=== PATIENT | female | born 1955 | race Caucasian/White ===

== ENCOUNTER 2020-08-29 08:12 | Outpatient (REF) | payer OTHER, SELFPAY ==
[2020-08-29 19:16] LABS: Abs Immature Grans 0.01 10^3/uL (0.0-0.06); Absolute Basophil Count 0.06 10^3/uL (0.0-0.2); Absolute Eosinophil Count 0.17 10^3/uL (0.0-0.7); Absolute Lymphocyte Count 1.93 10^3/uL (1.2-3.4); Absolute Neutrophil Count 2.53 10^3/uL (1.2-6.7); Basophils % 1.2; Eosinophils % 3.3; HCT 40.6 % (36.0-46.0); HGB 13.3 g/dL (11.2-15.7); Immature Grans % 0.2; Lymphocytes % 37.8; MCH 32.3 pg (27.0-33.0); MCHC 32.8 % (32.0-36.0); MCV 98.5 fL (80-95); MPV 9.4 fL (8.0-11.0); Monocytes % 7.8; Neutrophils % 49.7; Nucleated RBC 0 %; Platelet Count 287 10^3/uL (130-400); RBC 4.12 10^6/uL (3.93-5.22); RDW 12.8 % (11.7-14.6); RDW-SD 46.2 fL
[2020-08-29 19:58] LABS: ALT 15 U/L (14-59); AST 12 U/L (15-37); Albumin 3.6 g/dL (3.4-5.0); Alkaline Phosphatase 77 U/L (46-116); Anion Gap 7.2 mmol/L (3-11); BUN 12 mg/dL (7-18); Bilirubin, Total 0.4 mg/dL (0.2-1.0); CO2 31.8 mmol/L (21.0-32.0); Calcium 8.5 mg/dL (8.5-10.1); Calculated LDL 161 mg/dL (<100); Chloride 104 mmol/L (98-107); Cholesterol 217 mg/dL (<200); Estimated GFR 55.64 (mL/min/1.73m2); Glucose 91 mg/dL (74-106); HDL Cholesterol 39 mg/dL (40-60); Potassium 3.6 mmol/L (3.5-5.1); Sodium 143 mmol/L (136-145); TSH (W/Ref FT4) 5.11 uIU/mL (0.36-3.74); Total Protein 6.4 g/dL (6.4-8.2); Triglyceride 88 mg/dL (<150)
[2020-08-29 20:20] LABS: FREE T4 1.13 ng/dL (0.76-1.46)
== END 2020-08-29 08:32 ==
LOC: NCHCN 08:12
PROVIDERS: PCP Physician Assistant; Visit Provider Physician Assistant
DX: E78.5 Hyperlipidemia, unspecified (principal); E03.9 Hypothyroidism, unspecified; K76.0 Fatty (change of) liver, not elsewhere classified; J44.9 Chronic obstructive pulmonary disease, unspecified
CPT/HCPCS: 80053; 80061; 84439; 84443; 85025

== ENCOUNTER 2020-11-28 15:41 | Outpatient (REF) | payer OTHER, SELFPAY ==
[2020-11-28 16:12] LABS: Calculated LDL 109 mg/dL (<100); Cholesterol 176 mg/dL (<200); HDL Cholesterol 33 mg/dL (40-60); TSH (W/Ref FT4) 3.51 uIU/mL (0.36-3.74); Triglyceride 173 mg/dL (<150)
== END 2020-11-28 15:42 | disposition home or self-care (01) ==
LOC: NCHCN 15:41
PROVIDERS: PCP Physician Assistant; Visit Provider Physician Assistant
DX: E78.2 Mixed hyperlipidemia (principal); E03.9 Hypothyroidism, unspecified; F32.9 Major depressive disorder, single episode, unspecified; F17.200 Nicotine dependence, unspecified, uncomplicated
CPT/HCPCS: 80061; 84443

== ENCOUNTER 2020-12-05 15:20 | Outpatient (REF) | payer OTHER, SELFPAY ==
[2020-12-07 13:17] LABS: COVID-19 RT-PCR UVMMC Result Negative (Negative)
== END 2020-12-05 15:21 | disposition home or self-care (01) ==
LOC: NCHCN 15:20
PROVIDERS: PCP Physician Assistant; Visit Provider Physician Assistant
DX: Z20.822 Contact with and (suspected) exposure to COVID-19 (principal)
CPT/HCPCS: U0003

== ENCOUNTER 2021-09-20 19:04 | Outpatient (REF) | payer OTHER, SELFPAY ==
[2021-09-22 11:43] LABS: COVID-19 RT-PCR UVMMC Result Negative (Negative)
== END 2021-09-20 19:05 | disposition home or self-care (01) ==
LOC: NCHCN 19:04
PROVIDERS: PCP Physician Assistant; Visit Provider Physician Assistant
DX: Z20.822 Contact with and (suspected) exposure to COVID-19 (principal)
CPT/HCPCS: U0003; U0005

== ENCOUNTER 2021-10-04 18:41 | Outpatient (REF) | payer OTHER, SELFPAY ==
[2021-10-04 19:46] LABS: Anion Gap 5.2 mmol/L (3-11); BUN 17 mg/dL (7-18); CO2 30.8 mmol/L (21.0-32.0); CREATININE 1.1 mg/dL (0.55-1.02); Calcium 8.6 mg/dL (8.5-10.1); Chloride 102 mmol/L (98-107); Estimated GFR 49.69 (mL/min/1.73m2); Glucose 98 mg/dL (74-106); Potassium 4.1 mmol/L (3.5-5.1); Sodium 138 mmol/L (136-145); TSH (W/Ref FT4) 1.18 uIU/mL (0.36-3.74)
== END 2021-10-04 18:42 | disposition home or self-care (01) ==
LOC: NCHCN 18:41
PROVIDERS: PCP Physician Assistant; Visit Provider Physician Assistant
DX: E03.9 Hypothyroidism, unspecified (principal); I10 Essential (primary) hypertension
CPT/HCPCS: 80048; 84443

== ENCOUNTER 2022-04-02 19:04 | Outpatient (REF) | payer MEDICARE, SELFPAY ==
[2022-04-02 20:13] LABS: Abs Immature Grans 0.02 10^3/uL (0.0-0.06); Absolute Basophil Count 0.04 10^3/uL (0.0-0.2); Absolute Eosinophil Count 0.09 10^3/uL (0.0-0.7); Absolute Lymphocyte Count 1.32 10^3/uL (1.2-3.4); Absolute Monocyte Count 0.44 10^3/uL (0.1-0.8); Absolute Neutrophil Count 3.47 10^3/uL (1.2-6.7); Basophils % 0.7; Eosinophils % 1.7; HCT 42.9 % (36.0-46.0); Immature Grans % 0.4; Lymphocytes % 24.5; MCH 32.2 pg (27.0-33.0); MCHC 32.6 % (32.0-36.0); MCV 99 fL (80-95); MPV 9.6 fL (8.0-11.0); Monocytes % 8.2; Neutrophils % 64.5; Platelet Count 277 10^3/uL (130-400); RBC 4.35 10^6/uL (3.93-5.22); RDW 12.9 % (11.7-14.6); RDW-SD 46.7 fL; WBC 5.38 10^3/uL (4.4-10.8)
[2022-04-02 20:42] LABS: Hemoglobin A1C 5.4 % (<5.7)
[2022-04-02 20:51] LABS: ALT 20 U/L (14-59); AST 15 U/L (15-37); Albumin 3.7 g/dL (3.4-5.0); Alkaline Phosphatase 65 U/L (46-116); Anion Gap 6.5 mmol/L (3-11); BUN 15 mg/dL (7-18); Bilirubin, Total 0.3 mg/dL (0.2-1.0); CO2 33.5 mmol/L (21.0-32.0); Calcium 8.9 mg/dL (8.5-10.1); Chloride 104 mmol/L (98-107); Estimated GFR 55.47 (mL/min/1.73m2); Glucose 73 mg/dL (74-106); Potassium 4.2 mmol/L (3.5-5.1); Sodium 144 mmol/L (136-145); TSH (W/Ref FT4) 0.84 uIU/mL (0.36-3.74); Total Protein 6.6 g/dL (6.4-8.2); Vitamin B12 269 pg/mL (193-986)
== END 2022-04-02 19:05 | disposition home or self-care (01) ==
LOC: NCHCN 19:04
PROVIDERS: PCP Physician Assistant; Visit Provider Physician Assistant
DX: I10 Essential (primary) hypertension (principal); E78.5 Hyperlipidemia, unspecified; E03.9 Hypothyroidism, unspecified; R53.83 Other fatigue; E53.8 Deficiency of other specified B group vitamins; G04.90 Encephalitis and encephalomyelitis, unspecified; R73.09 Other abnormal glucose
CPT/HCPCS: 80053; 82607; 83036; 84443; 85025

== ENCOUNTER 2022-05-06 18:23 | Outpatient (REF) | payer MEDICARE, SELFPAY ==
[2022-05-08 09:46] LABS: Alpha 1 Antitrypsin,Serum 165 mg/dL (90-200)
== END 2022-05-06 18:24 | disposition home or self-care (01) ==
LOC: NCHCN 18:23
PROVIDERS: PCP Physician Assistant; Visit Provider Nurse Practitioner Family
DX: J44.9 Chronic obstructive pulmonary disease, unspecified (principal)
CPT/HCPCS: 82103

== ENCOUNTER 2023-01-23 02:17 | Outpatient (CLI) | payer MEDICARE, SELFPAY ==
[2023-01-23 14:36] LABS: BE 3 mmol/L (-2-3); HCO3 28 mmol/L (22-26); Site Right Radial; pCO2 43 mmHg (35-45); pH 7.41 (7.35-7.45); pO2 75 mmHg (80-105); sO2 97 % (95-98); tCO2 25 mmol/L (23-27)
[2023-01-23 14:37] LABS: FIO2L ROOM AIR L
== END 2023-01-23 02:18 | disposition home or self-care (01) ==
LOC: RT 02:17
PROVIDERS: PCP Physician Assistant; Visit Provider Physician Assistant Surgical
DX: J44.9 Chronic obstructive pulmonary disease, unspecified (principal)
CPT/HCPCS: 82805

== ENCOUNTER 2023-01-23 02:17 | Outpatient (CLI) | payer MEDICARE, SELFPAY | END 2023-01-23 02:18 | disposition home or self-care (01) | LOC: RT 02:17 | PROVIDERS: PCP Physician Assistant; Visit Provider Physician Assistant Surgical | DX: J44.9 Chronic obstructive pulmonary disease, unspecified (principal) | CPT/HCPCS: 36600; 94762 ==

== ENCOUNTER 2023-03-05 13:31 | Outpatient (REF) | payer MEDICARE, SELFPAY ==
[2023-03-05 21:04] LABS: HCT 39.5 % (36.0-46.0); HGB 12.9 g/dL (11.2-15.7); MCH 31.8 pg (27.0-33.0); MCHC 32.7 % (32.0-36.0); MCV 97 fL (80-95); MPV 10.4 fL (8.0-11.0); Platelet Count 254 10^3/uL (130-400); RBC 4.06 10^6/uL (3.93-5.22); RDW 12.4 % (11.7-14.6); RDW-SD 44.7 fL; WBC 5.24 10^3/uL (4.4-10.8)
[2023-03-05 21:39] LABS: ALT 16 U/L (14-59); AST 15 U/L (15-37); Albumin 3.3 g/dL (3.4-5.0); Alkaline Phosphatase 69 U/L (46-116); Anion Gap 4.8 mmol/L (3-11); BUN 14 mg/dL (7-18); Bilirubin, Total 0.3 mg/dL (0.2-1.0); CO2 33.2 mmol/L (21.0-32.0); CREATININE 1.1 mg/dL (0.55-1.02); Calcium 8.8 mg/dL (8.5-10.1); Chloride 106 mmol/L (98-107); Estimated GFR 55.07 (mL/min/1.73m2); Glucose 83 mg/dL (74-106); Sodium 144 mmol/L (136-145); Total Protein 6.5 g/dL (6.4-8.2)
== END 2023-03-05 13:32 | disposition home or self-care (01) ==
LOC: NCHCN 13:31
PROVIDERS: PCP Physician Assistant; Visit Provider Physician Assistant
DX: E03.9 Hypothyroidism, unspecified (principal); E53.8 Deficiency of other specified B group vitamins; I10 Essential (primary) hypertension
CPT/HCPCS: 80053; 85027; 84443

== ENCOUNTER → 2023-07-14 14:38 | Outpatient (BNVA) | payer MEDICARE, MEDICAID, SELFPAY | PROVIDERS: PCP Physician Assistant; Referring Provider Physician Assistant; Visit Provider Physician Assistant Surgical | DX: J44.9 Chronic obstructive pulmonary disease, unspecified (principal); J96.11 Chronic respiratory failure with hypoxia; R91.1 Solitary pulmonary nodule; I10 Essential (primary) hypertension; F17.210 Nicotine dependence, cigarettes, uncomplicated; Z79.51 Long term (current) use of inhaled steroids | CPT/HCPCS: 99214 ==

== ENCOUNTER → 2023-10-20 13:40 | Outpatient (BNVA) | payer MEDICARE, MEDICAID, SELFPAY | PROVIDERS: PCP Physician Assistant; Referring Provider Physician Assistant; Visit Provider Student in an Organized Health Care Education/Training Program | DX: R91.1 Solitary pulmonary nodule (principal); J44.9 Chronic obstructive pulmonary disease, unspecified; J96.11 Chronic respiratory failure with hypoxia; F17.210 Nicotine dependence, cigarettes, uncomplicated | CPT/HCPCS: 99214 ==

== ENCOUNTER 2023-10-31 03:01 | Outpatient (CLI) | payer MEDICARE, MEDICAID, SELFPAY ==
[2023-10-31] MEDS: Levalbuterol HFA 15 GM INH 4 PUFF IH (13:46)
[2023-10-31] MEDS: Inhaler, Assist Device 1 EACH MC (13:46)
--- NOTE | 2023-11-03 07:57 | W.PFT ---
Date of service: 10/31/23 Time of Service: 12:41 Pulmonary Function Test Result Indications: COPD Interpretation Spirometry: There is very severe airflow limitation. There is a significant bronchodilator response. Lung Volumes: There is hyperinflation and air trapping. Diffusion Capacity: Normal diffusion. Airway Pressure: Increased airways ressitance Impression Very severe airflow obstruction with air trapping and a normal diffusion. Clinical Correlation therefore is recommended.
== END 2023-10-31 03:02 | disposition home or self-care (01) ==
LOC: RT 03:01
PROVIDERS: PCP Physician Assistant; Visit Provider Student in an Organized Health Care Education/Training Program
DX: J44.9 Chronic obstructive pulmonary disease, unspecified (principal)
CPT/HCPCS: 94060; 94726; 94729

== ENCOUNTER 2024-03-09 16:18 | Outpatient (REF) | payer MEDICARE, SELFPAY ==
[2024-03-09 19:32] LABS: Abs Immature Grans 0.01 10^3/uL (0.0-0.06); Absolute Basophil Count 0.04 10^3/uL (0.0-0.2); Absolute Eosinophil Count 0.19 10^3/uL (0.0-0.7); Absolute Lymphocyte Count 1.88 10^3/uL (1.2-3.4); Absolute Monocyte Count 0.54 10^3/uL (0.1-0.8); Absolute Neutrophil Count 4.54 10^3/uL (1.2-6.7); Basophils % 0.6 %; Eosinophils % 2.6 %; HCT 37.9 % (36.0-46.0); HGB 12.1 g/dL (11.2-15.7); Immature Grans % 0.1 %; Lymphocytes % 26.1 %; MCH 31.1 pg (27.0-33.0); MCHC 31.9 % (32.0-36.0); MCV 97 fL (80-95); MPV 9.8 fL (8.0-11.0); Monocytes % 7.5 %; Neutrophils % 63.1 %; Platelet Count 281 10^3/uL (130-400); RBC 3.89 10^6/uL (3.93-5.22); RDW 11.6 % (11.7-14.6); RDW-SD 41.8 fL
[2024-03-09 19:58] LABS: ALT 21 U/L (14-59); AST 16 U/L (15-37); Albumin 3.4 g/dL (3.4-5.0); Alkaline Phosphatase 88 U/L (46-116); Anion Gap 6.2 mmol/L (3-11); BUN 14 mg/dL (7-18); Bilirubin, Total 0.3 mg/dL (0.2-1.0); CO2 30.8 mmol/L (21.0-32.0); CREATININE 0.9 mg/dL (0.55-1.02); Calcium 8.9 mg/dL (8.5-10.1); Chloride 106 mmol/L (98-107); Estimated GFR 69.64 (mL/min/1.73m2); Glucose 82 mg/dL (74-106); Potassium 3.9 mmol/L (3.5-5.1); Sodium 143 mmol/L (136-145); TSH (W/Ref FT4) 0.67 uIU/mL (0.36-3.74); Total Protein 6.8 g/dL (6.4-8.2)
== END 2024-03-09 16:19 | disposition home or self-care (01) ==
LOC: NCHCN 16:18
PROVIDERS: PCP Physician Assistant; Visit Provider Physician Assistant
DX: I10 Essential (primary) hypertension (principal); E03.9 Hypothyroidism, unspecified
CPT/HCPCS: 80053; 84443; 85025

== ENCOUNTER → 2024-04-19 12:16 | Outpatient (BNVA) | payer MEDICARE, SELFPAY | PROVIDERS: PCP Physician Assistant; Referring Provider Physician Assistant; Visit Provider Physician Assistant Surgical | DX: J44.9 Chronic obstructive pulmonary disease, unspecified (principal); J96.11 Chronic respiratory failure with hypoxia; R91.1 Solitary pulmonary nodule; F17.210 Nicotine dependence, cigarettes, uncomplicated | CPT/HCPCS: 99214 ==

== ENCOUNTER 2024-06-09 17:18 | Outpatient (REF) | payer MEDICARE, SELFPAY ==
[2024-06-16 10:00] LABS: Codeine Negative ng/mL (Cutoff: 25); Dihydrocodeine 368 ng/mL (Cutoff: 25); Hydrocodone 357 ng/mL (Cutoff: 25); Hydromorphone 85 ng/mL (Cutoff: 25); Morphine 46 ng/mL (Cutoff: 25); Naloxone Negative ng/mL (Cutoff: 25); Norhydrocodone 1302 ng/mL (Cutoff: 25); Noroxycodone Negative ng/mL (Cutoff: 25); Noroxymorphone Negative ng/mL (Cutoff: 25)
== END 2024-06-09 17:19 | disposition home or self-care (01) ==
LOC: NCHCN 17:18
PROVIDERS: PCP Physician Assistant; Visit Provider Physician Assistant
DX: G89.29 Other chronic pain (principal)
CPT/HCPCS: 80361; 80362; 80365

== ENCOUNTER → 2024-10-18 12:54 | Outpatient (BNVA) | payer MEDICARE, MEDICAID, SELFPAY | PROVIDERS: PCP Physician Assistant; Referring Provider Physician Assistant; Visit Provider Physician Assistant Surgical | DX: J44.9 Chronic obstructive pulmonary disease, unspecified (principal); R91.1 Solitary pulmonary nodule; J96.11 Chronic respiratory failure with hypoxia; F17.210 Nicotine dependence, cigarettes, uncomplicated | CPT/HCPCS: 99214; G0296 ==

== ENCOUNTER 2025-03-16 09:49 | Outpatient (REF) | payer MEDICARE, SELFPAY ==
[2025-03-16 21:00] LABS: Abs Immature Grans 0.01 10^3/uL (0.0-0.06); Absolute Basophil Count 0.05 10^3/uL (0.0-0.2); Absolute Eosinophil Count 0.16 10^3/uL (0.0-0.7); Absolute Lymphocyte Count 1.84 10^3/uL (1.2-3.4); Absolute Monocyte Count 0.53 10^3/uL (0.1-0.8); Basophils % 0.9 %; HCT 35.1 % (36.0-46.0); HGB 11.2 g/dL (11.2-15.7); Immature Grans % 0.2 %; Lymphocytes % 34.1 %; MCH 31.2 pg (27.0-33.0); MCHC 31.9 % (32.0-36.0); MCV 98 fL (80-95); MPV 9.5 fL (8.0-11.0); Monocytes % 9.8 %; Platelet Count 244 10^3/uL (130-400); RBC 3.59 10^6/uL (3.93-5.22); RDW 12.2 % (11.7-14.6); RDW-SD 44.2 fL; WBC 5.39 10^3/uL (4.4-10.8)
[2025-03-16 21:29] LABS: Albumin 3.4 g/dL (3.4-5.0); Calcium 9.2 mg/dL (8.5-10.1); Total Protein 6.5 g/dL (6.4-8.2)
[2025-03-16 22:00] LABS: ALT 28 U/L (14-59); AST 18 U/L (15-37); Alkaline Phosphatase 88 U/L (46-116); Anion Gap 5.6 mmol/L (3-11); BUN 17 mg/dL (7-18); Bilirubin, Total 0.3 mg/dL (0.2-1.0); CO2 32.4 mmol/L (21.0-32.0); CREATININE 1.1 mg/dL (0.55-1.02); Calculated LDL 77 mg/dL (<100); Chloride 104 mmol/L (98-107); Cholesterol 150 mg/dL (<200); Estimated GFR 54.39 (mL/min/1.73m2); Glucose 97 mg/dL (74-106); HDL Cholesterol 59 mg/dL (>or=50); Potassium 4.8 mmol/L (3.5-5.1); Sodium 142 mmol/L (136-145); TSH (W/Ref FT4) 0.29 uIU/mL (0.36-3.74); Triglyceride 72 mg/dL (<150)
[2025-03-17 00:29] LABS: FREE T4 1.26 ng/dL (0.76-1.46)
[2025-03-18 11:08] LABS: Hepatitis C Ab w Rflx HCV PCR Negative (Negative)
== END 2025-03-16 09:50 | disposition home or self-care (01) ==
LOC: NCHCN 09:49
PROVIDERS: PCP Physician Assistant; Visit Provider Physician Assistant
DX: I10 Essential (primary) hypertension (principal); E03.9 Hypothyroidism, unspecified; E78.5 Hyperlipidemia, unspecified; Z11.59 Encounter for screening for other viral diseases
CPT/HCPCS: 80053; 80061; 86803; 84439; 84443; 85025

== ENCOUNTER → 2025-04-21 10:57 | Outpatient (BNVA) | payer MEDICARE, SELFPAY | PROVIDERS: PCP Physician Assistant; Referring Provider Physician Assistant; Visit Provider Internal Medicine Pulmonary Disease | DX: J44.9 Chronic obstructive pulmonary disease, unspecified (principal); Z23 Encounter for immunization; J96.11 Chronic respiratory failure with hypoxia; R91.1 Solitary pulmonary nodule; G47.33 Obstructive sleep apnea (adult) (pediatric); F17.210 Nicotine dependence, cigarettes, uncomplicated | CPT/HCPCS: 99215; 94618; 90471; 90684 ==

== ENCOUNTER → 2025-05-03 13:00 | Outpatient (BNVA) | payer MEDICARE, SELFPAY | PROVIDERS: PCP Physician Assistant; Referring Provider Physician Assistant; Visit Provider Physician Assistant Surgical | DX: G47.33 Obstructive sleep apnea (adult) (pediatric) (principal); R91.1 Solitary pulmonary nodule; J44.9 Chronic obstructive pulmonary disease, unspecified; Z72.0 Tobacco use | CPT/HCPCS: 99215 ==

== ENCOUNTER 2025-05-12 11:12 | Outpatient (REF) | payer MEDICARE, MEDICAID, SELFPAY ==
[2025-05-12 19:20] LABS: TSH (W/Ref FT4) 0.62 uIU/mL (0.36-3.74)
== END 2025-05-12 11:13 | disposition home or self-care (01) ==
LOC: NCHCN 11:12
PROVIDERS: PCP Physician Assistant; Visit Provider Physician Assistant
DX: E03.9 Hypothyroidism, unspecified (principal)
CPT/HCPCS: 84443

== ENCOUNTER 2025-06-13 14:00 | Outpatient (RCR) | payer MEDICARE, MEDICAID, SELFPAY | END 2025-06-21 23:59 | disposition home or self-care (01) | LOC: PRC 14:00 | PROVIDERS: PCP Physician Assistant; Visit Provider Internal Medicine Pulmonary Disease | DX: J44.9 Chronic obstructive pulmonary disease, unspecified (principal); Z51.89 Encounter for other specified aftercare | CPT/HCPCS: 94626 ==

== ENCOUNTER 2025-06-16 17:13 | Outpatient (REF) | payer MEDICARE, MEDICAID, SELFPAY | END 2025-06-16 17:14 | disposition home or self-care (01) | LOC: NCHCN 17:13 | PROVIDERS: PCP Physician Assistant; Visit Provider Physician Assistant | DX: G89.29 Other chronic pain (principal) | CPT/HCPCS: 80361; 80362; 80365 ==

== ENCOUNTER 2025-06-24 14:08 | Outpatient (RCR) | payer MEDICARE, MEDICAID, SELFPAY | END 2025-07-22 23:59 | disposition home or self-care (01) | LOC: PRC 14:08 | PROVIDERS: PCP Physician Assistant; Visit Provider Internal Medicine Pulmonary Disease | DX: J44.9 Chronic obstructive pulmonary disease, unspecified (principal); Z51.89 Encounter for other specified aftercare | CPT/HCPCS: 94626 ==

== ENCOUNTER → 2025-06-28 11:13 | Outpatient (BNVA) | payer MEDICARE, MEDICAID, SELFPAY | PROVIDERS: PCP Physician Assistant; Referring Provider Physician Assistant; Visit Provider Internal Medicine Pulmonary Disease | DX: J44.1 Chronic obstructive pulmonary disease with (acute) exacerbation (principal); R91.1 Solitary pulmonary nodule; G47.33 Obstructive sleep apnea (adult) (pediatric); R07.9 Chest pain, unspecified; Z72.0 Tobacco use | CPT/HCPCS: 99215 ==

== ENCOUNTER 2025-08-29 15:11 | Emergency (ER) | payer MEDICARE, SELFPAY ==
[2025-08-29 15:27] VITALS: BP 122/80; PULSE 91; RESP 24; TEMP 36.8; O2SAT 92
--- NOTE | 2025-08-29 15:30 | RT.EKG_ITS ---
APPROVED REPORT Exam: Resting ECG Reason for Exam: SOB Patient Location: E HR:82 bpm ECG Measurements Heart Rate 82 AXIS PA 114 P 89 QRSd 93 QRS 30 QT 369 T 73 QTc 430 Conclusion Sinus rhythm...normal P axis, V-rate 60- 99 ST elevation, consider inferior injury...ST >0.08mV, II III aVF
[2025-08-29 16:00] VITALS: RESP 16
[2025-08-29 16:23] VITALS: PULSE 71; RESP 18; O2SAT 96
[2025-08-29] MEDS: Albuterol/Ipratropium 3 ML UPD VIAL 9 ML UPD (16:23)
[2025-08-29] MEDS: methylPREDNISolone SUCC 125 MG VIAL IVP (16:23)
[2025-08-29] MEDS: MAGNESIUM SULFATE 2 GM/50 ML BAG IV_INF (16:24)
[2025-08-29 16:37] LABS: BE (Venous) 8 mmol/L (-2-3); HCO3 (Venous) 32 mmol/L (23-28); O2 Sat (Venous) 81 %; TCO2 (Venous) 29 mmol/L (24-29); pCO2 (Venous) 51 mmHg (41-51); pO2 (Venous) 44 mmHg
[2025-08-29 16:43] LABS: Abs Immature Grans 0.01 10^3/uL (0.0-0.06); HCT 35.7 % (36.0-46.0); HGB 11.4 g/dL (11.2-15.7); Immature Grans % 0.2 %; MCH 30.4 pg (27.0-33.0); MCHC 31.9 % (32.0-36.0); MCV 95 fL (80-95); MPV 9.0 fL (8.0-11.0); Platelet Count 231 10^3/uL (130-400); RBC 3.75 10^6/uL (3.93-5.22); RDW 12.5 % (11.7-14.6); RDW-SD 43.8 fL; WBC 5.53 10^3/uL (4.4-10.8)
[2025-08-29 16:56] LABS: Magnesium 2.0 mg/dL (1.6-2.6)
[2025-08-29 16:57] LABS: ALT 12 U/L (10-49); AST 17 U/L (<34); Albumin 4.0 g/dL (3.2-5.0); Alkaline Phosphatase 67 U/L (46-116); Anion Gap 6.3 mmol/L (3-11); BUN 22 mg/dL (9-23); Bilirubin, Total 0.30 mg/dL (0.2-1.2); CO2 31.7 mmol/L (20.0-31.0); Calcium 9.0 mg/dL (8.3-10.6); Chloride 103 mmol/L (98-107); Glucose 107 mg/dL (74-106); Potassium 4.0 mmol/L (3.5-5.1); Sodium 141 mmol/L (136-145); Total Protein 6.4 g/dL (5.7-8.2); Troponin I 5 ng/L (<35)
[2025-08-29 17:07] LABS: D-Dimer 962 ng/mlFEU (<500)
[2025-08-29] MEDS: Normal Saline - Diluent 50 ML VIAL IJ (17:35)
[2025-08-29] MEDS: Omnipaque 350 MG/ML 100 ML BTL IJ (17:36)
[2025-08-29] MEDS: Normal Saline Flush 10 ML SYR IVP (17:39)
--- NOTE | 2025-08-29 17:40 | DI.CT_ITS ---
Exam(s) CT CHEST PE CTA EXAM: CT CHEST PE CTA CLINICAL HISTORY: elev d-dimer, SOB. TECHNIQUE: Imaging Protocol: CT angiography of the chest was performed using pulmonary embolus protocol. Multi planar reconstructions were performed. CONTRAST MATERIAL: Intravenous: Omnipaque 350 Contrast volume: 75 cc COMPARISON: CT CT CHEST LOW DOSE CA SCREENING from 05/06/2025 FINDINGS: CHEST: PULMONARY ARTERIES: There are no intraluminal filling defects to suggest acute pulmonary emboli. LUNGS: Previously described partially calcified spiculated mass-infiltrate in the left lower lobe has slightly further increased in size and now exhibits some internal cavitation. Medial to this is a smaller partially calcified nodule which appears unchanged and just below this level is in unchanged noncalcified nodule measuring 6 mm in the left lower lobe, also unchanged. In the left upper lobe the previously described mass infiltrate presently measures 2.2 cm length by 0.6 cm wide, unchanged.. No additional left lung findings nor pleural effusion. In the opposite-right lung there are no new infiltrates nor nodules. A small 4 millimeter right upper lobe nodule is unchanged. No new focal right lung findings and no pleural effusion. No new findings in trachea and mainstem bronchi. MEDIASTINUM: There is no hilar nor mediastinal adenopathy. Visualized thyroid unremarkable. CARDIAC: Heart size is upper normal. There is no pericardial effusion.Caliber of the thoracic aorta is within normal limits. No evidence of dissection. There is no significant shift of the interventricular septum. PARTIALLY VISUALIZED UPPERMOST ABDOMEN: The partially included abdominal aorta is atherosclerotic and dilated with external diameter of 2.9 cm. No adrenal masses. No ascites. No splenomegaly OSSEOUS: No significant osseous lesions.. IMPRESSION: 1. No evidence of acute pulmonary emboli. No evidence of pulmonary infarction.No pleural effusions. 2. The previously described new left upper lobe nodular lesion exhibits minimal if any significant change size when compared to outside CT scan of 05/06/2025. 3. The previously described partially calcified mass in the left lower lobe has slightly increased in size and now exhibits some cavitation on the present study. Correlation with interval previously recommended diagnostic tests is recommended. See outside report of 05/06/2025. Report called by myself to ER physician on 08/29/2025 at 6:10 p.m. RADIATION DOSE DELIVERED: 52.22mGy.cm Total DLP DATA REPOSITORY: All CT scans at this facility are submitted to the National Radiology Data Registry (NRDR) Dose Index Registry (DIR) with the [employer] ([employer]). RADIATION OPTIMIZATION: All CT scans at this facility use at least one of these dose optimization techniques: automated exposure control; mA and/or kV adjustment per patient size (includes targeted exams where dose is matched to clinical indication); or iterative reconstruction.
--- NOTE | 2025-08-29 18:29 | W.ED.GENAD ---
Discharge Plan Disposition Patient Disposition: Home Condition: Stable Discharge Details Clinical Impression: Acute exacerbation of chronic bronchitis Primary Care Provider: Kaylee Florian ED Provider: Julio C Queen Home Meds and New Rx's Prescriptions: New azithromycin 250 mg tablet See Rx Instructions .ROUTE .COMPLEX Qty: 6 0RF Rx Instructions: For 250 mg dose pack: take 500 mg today (day 1), then 250 mg for 4 days (days 2-5) Continued albuterol sulfate 2.5 mg /3 mL (0.083 %) solution for nebulization 2.5 mg inhalation Q6H PRN (Reason: shortness of breath or wheezing) Qty: 180 5RF rosuvastatin 10 mg tablet 10 mg PO DAILY morphine 10 mg/5 mL solution 5 mg PO TID MDD 15mg PRN (Reason: air hunger) Qty: 100 0RF lorazepam [Ativan] 0.5 mg tablet 0.5 mg PO BID PRN (Reason: anxiety) Qty: 14 0RF cholecalciferol (vitamin D3) 10 mcg (400 unit) capsule 10 mcg PO DAILY hydrocodone-acetaminophen 7.5-325 mg tablet 1 tab PO DAILY PRN albuterol sulfate [ProAir HFA] 90 mcg/actuation HFA aerosol inhaler See Rx Instructions inhalation 6XD PRN Rx Instructions: 1-2 puffs inhaled 6 times per day PRN; diphenhydramine HCl [Benadryl Allergy] 25 mg tablet 50 mg PO ONCE PRN lisinopril 40 mg tablet 40 mg PO DAILY omeprazole 20 mg capsule,delayed release(DR/EC) 20 mg PO DAILY escitalopram oxalate 10 mg tablet 10 mg PO DAILY sumatriptan succinate [Imitrex] 25 mg tablet See Rx Instructions PO .COMPLEX Rx Instructions: take 1 tab at onset of headache; if no relief may repeat 1 tab after at least 2 hrs; max = 4 tabs/24 hr PO amlodipine 5 mg tablet 5 mg PO DAILY cyanocobalamin (vitamin B-12) 1,000 mcg capsule 1,000 mcg PO DAILY Breztri Aerosphere 160-9-4.8 mcg/actuation HFA aerosol inhaler 2 inh inhalation BID Qty: 10.7 12RF duloxetine 60 mg capsule,delayed release(DR/EC) 60 mg PO DAILY levothyroxine 100 mcg tablet 88 mcg PO DAILY meclizine 25 mg tablet 25 mg PO TID PRN Discharge Instructions Instructions: Azithromycin (Systemic), Cefuroxime, Prednisone, COPD Exacerbation, Adult ED Additional Instructions: You were seen in the emergency department for your acute exacerbation of COPD, I am starting you on 2 different antibiotics for 5 days as well as 4 days of prednisone, start these medicines tomorrow, continue your at home nebulizer treatments, follow-up with your primary care provider in regards to the CT scan that we performed today which showed some progression of your small pulmonary nodules, please return for any respiratory distress. Stand Alone Forms: Portal Information Referrals: Kaylee Florian [Primary Care Provider, Medicine] Discharge Data Discharge Date/Time-TO BE ENTERED AT DEPARTURE: 08/29/25 19:20 HPI General Date/Time Provider Initiated Documentation: 08/29/25 15:53. HPI Narrative: 70 year-old female presents to ED today by POV/ambulating with a chief complaint of cough in the setting of chronic advanced COPD, getting short of breath walking around her home with onset over the past week. Quality described as generalized cough, malaise, no radiation to chest pain, syncope, dizziness, hemoptysis, fever, nausea, vomiting. Severity is described as moderate to severe intermittently. Palliating factors include at-home breathing treatments. Provoking factors include nothing specific. Patient not anticoagulated. Related Data Home Medications ?Medication ?Instructions ?Recorded ?Confirmed albuterol sulfate 90 mcg/actuation See Rx Instructions inhalation 6XD 05/10/22 08/29/25 aerosol inhaler (ProAir HFA) PRN amlodipine 5 mg tablet 5 mg PO DAILY 05/10/22 08/29/25 cholecalciferol (vitamin D3) 10 10 mcg PO DAILY 05/10/22 08/29/25 mcg (400 unit) capsule cyanocobalamin (vitamin B-12) 1,000 mcg PO DAILY 05/10/22 08/29/25 1,000 mcg capsule diphenhydramine HCl 25 mg tablet 50 mg PO ONCE PRN 05/10/22 08/29/25 (Benadryl Allergy) escitalopram oxalate 10 mg tablet 10 mg PO DAILY 05/10/22 08/29/25 hydrocodone 7.5 mg-acetaminophen 1 tab PO DAILY PRN 05/10/22 08/29/25 325 mg tablet lisinopril 40 mg tablet 40 mg PO DAILY 05/10/22 08/29/25 omeprazole 20 mg capsule,delayed 20 mg PO DAILY 05/10/22 08/29/25 release sumatriptan succinate 25 mg tablet See Rx Instructions PO .COMPLEX 05/10/22 08/29/25 (Imitrex) rosuvastatin 10 mg tablet 10 mg PO DAILY 07/14/23 08/29/25 lorazepam 0.5 mg tablet (Ativan) 0.5 mg PO BID PRN anxiety #14 tabs 10/18/24 08/29/25 morphine 10 mg/5 mL oral solution 5 mg (2.5 mL) PO TID PRN air 10/18/24 08/29/25 hunger #100 mL budesonide 160 mcg-glycopyr 9 2 inh inhalation BID #10.7 grams 10/25/24 08/29/25 mcg-formot 4.8 mcg/actuation HFA inhaler (Breztri Aerosphere) albuterol sulfate 2.5 mg/3 mL 2.5 mg (3 mL) inhalation Q6H PRN 04/21/25 08/29/25 (0.083 %) solution for nebulization shortness of breath or wheezing #180 mL duloxetine 60 mg capsule,delayed 60 mg PO DAILY 04/21/25 08/29/25 release levothyroxine 100 mcg tablet 88 mcg PO DAILY 04/21/25 08/29/25 meclizine 25 mg tablet 25 mg PO TID PRN 04/21/25 08/29/25 azithromycin 250 mg tablet See Rx Instructions PO .COMPLEX #6 08/29/25 tabs Previous Rx's ?Medication ?Instructions ?Recorded lorazepam 0.5 mg tablet (Ativan) 0.5 mg PO BID PRN anxiety #14 tabs 10/18/24 morphine 10 mg/5 mL oral solution 5 mg (2.5 mL) PO TID PRN air 10/18/24 hunger #100 mL budesonide 160 mcg-glycopyr 9 2 inh inhalation BID #10.7 grams 10/25/24 mcg-formot 4.8 mcg/actuation HFA inhaler (Breztri Aerosphere) albuterol sulfate 2.5 mg/3 mL 2.5 mg (3 mL) inhalation Q6H PRN 04/21/25 (0.083 %) solution for nebulization shortness of breath or wheezing #180 mL azithromycin 250 mg tablet See Rx Instructions PO .COMPLEX #6 08/29/25 tabs Allergies Allergy/AdvReac Type Severity Reaction Status Date / Time penicillin V Allergy Intermediate Other (See Verified 08/29/25 15:31 Comment) tramadol (From Ultram) Allergy Intermediate itching Verified 08/29/25 15:31 varenicline (From Chantix) AdvReac Mild Nausea Unverified 08/29/25 15:31 General Stated Complaint: SOB CHRIS: 3 Review of Systems All systems reviewed & are unremarkable except as noted in HPI and below Exam Narrative Exam Narrative: GENERAL APPEARANCE: Well-nourished, non-toxic, awake and alert, atraumatic, no acute distress. SKIN: Warm, pink, dry, intact, without rashes/lesions/ulcerations. HEAD: Normocephalic, atraumatic, normal hair distribution for gender/age. EYES: Normal conjunctiva, no exudates on lids/lashes. ENT: Nares patent, no circumoral cyanosis, no facial swelling NECK: Supple, trachea midline, painless cervical ROM. LUNGS/CHEST: Lungs CTA bilaterally, non-labored respirations, normal A/P diameter, symmetrical expansion, no chest wall deformity HEART (CV/PV): Regular rate and rhythm without murmur, no peripheral edema, no JVD. ABDOMEN: Soft, non-distended, no guarding. MSK: Normal ROM, no swelling/deformity to bilateral UEs or LEs, moving all extremities without weakness, no cyanosis, spine midline without tenderness, normal curvature. NEURO: Mental Status AAOx4 - alert to person, place, time, events No facial droop, no forehead involvement. Motor: No focal weakness - strength 5/5 in bilateral UEs and LEs, proximal and distal, symmetric. Sensory: sensation intact to light touch globally. Gait normal: patient ambulated without ataxia into ED room. PSYCH: euthymic, cooperative, pleasant, appropriate speech Course Vital Signs Vital signs: Vital Signs Temperature 36.8 C 08/29/25 15:27 Pulse 91 H 08/29/25 15:27 Respiratory Rate 24 08/29/25 15:27 Blood Pressure 122/80 08/29/25 15:27 Pulse Oximetry 92 08/29/25 15:27 Temperature 36.8 C 08/29/25 15:27 Temperature Source Oral 08/29/25 15:27 Pulse 71 08/29/25 16:23 Respiratory Rate 18 08/29/25 16:23 Blood Pressure 122/80 08/29/25 15:27 Pulse Oximetry 96 08/29/25 16:23 Oxygen Delivery Method Room Air 08/29/25 16:23 Oxygen Flow Rate 0 08/29/25 16:23 Lab/Test Results Lab/Test Results: Laboratory Tests Range/Units 08/29/25 16:25 WBC (4.4-10.8) 10^3/uL 5.53 RBC (3.93-5.22) 10^6/uL 3.75 L Hgb (11.2-15.7) g/dL 11.4 Hct (36.0-46.0) % 35.7 L MCV (80-95) fL 95 MCH (27.0-33.0) pg 30.4 MCHC (32.0-36.0) % 31.9 L RDW (11.7-14.6) % 12.5 Plt Count (130-400) 10^3/uL 231 MPV (8.0-11.0) fL 9.0 Immature Gran % % 0.2 Neutrophils % % 60.2 Lymphocytes % % 27.7 Monocytes % % 8.5 Eosinophils % % 2.7 Basophils % % 0.7 Nucleated RBC % (0.0-0.3) % 0.0 Absolute Neutrophils (1.2-6.7) 10^3/uL 3.33 Absolute Lymphocytes (1.2-3.4) 10^3/uL 1.53 Absolute Monocytes (0.1-0.8) 10^3/uL 0.47 Absolute Eosinophils (0.0-0.7) 10^3/uL 0.15 Absolute Basophils (0.0-0.2) 10^3/uL 0.04 D-Dimer (<500) ng/mlFEU 962 H VBG pH (7.31-7.41) 7.41 VBG pCO2 (41-51) mmHg 51 VBG pO2 mmHg 44 VBG HCO3 (23-28) mmol/L 32 H VBG Total CO2 (24-29) mmol/L 29 VBG O2 Saturation % 81 VBG Base Excess (-2-3) mmol/L 8 H Sodium (136-145) mmol/L 141 Potassium (3.5-5.1) mmol/L 4.0 Chloride (98-107) mmol/L 103 Carbon Dioxide (20.0-31.0) mmol/L 31.7 H Anion Gap (3-11) mmol/L 6.3 BUN (9-23) mg/dL 22 Creatinine (0.55-1.02) mg/dL 0.89 Est GFR (CKD-EPI 2020) (mL/min/1.73m2) 62.64 Glucose (74-106) mg/dL 107 H Calcium (8.3-10.6) mg/dL 9.0 Magnesium (1.6-2.6) mg/dL 2.0 Total Bilirubin (0.2-1.2) mg/dL 0.30 AST (<34) U/L 17 ALT (10-49) U/L 12 Alkaline Phosphatase (46-116) U/L 67 Troponin I (<35) ng/L 5 NT-Pro-B Natriuret Pep (<300) pg/mL 65 Total Protein (5.7-8.2) g/dL 6.4 Albumin (3.2-5.0) g/dL 4.0 Medical Decision Making This dictation utilizes [id number] dictation software and may contain unedited grammatical errors. 70 year-old female presents to ED today by POV/ambulating with a chief complaint of cough in the setting of chronic advanced COPD, getting short of breath walking around her home with onset over the past week. Quality described as generalized cough, malaise, no radiation to chest pain, syncope, dizziness, hemoptysis, fever, nausea, vomiting. Severity is described as moderate to severe intermittently. Palliating factors include at-home breathing treatments. Provoking factors include nothing specific. Patients' medical history: COPD, chronic respiratory failure, fibromyalgia, hypertension. Family and social history: Former smoker, no recent travel or sick contacts. Pertinent exam findings / vital signs include diffuse mild wheezing, benign abdomen, nontoxic and afebrile, no hypoxia on arrival. Differential / pathologies of concern include COPD exacerbation, upper respiratory infection, PE, hypoxic respiratory failure, less likely ACS, pneumonia. Diagnostic studies of: - CBC, CMP, D-dimer, VBG, magnesium, troponin, BNP, EKG, CTA chest PE study. - CBC shows no leukocytosis, no anemia - CMP is unremarkable - Magnesium within normal limits - Troponin and BNP negative - ABG shows no acid-base disturbance - D-dimer is elevated at 962 - CTA of the chest shows no PE, I did discuss the slight change to her known nodules and mass she will follow-up with her primary care provider - EKG shows sinus rhythm 82 bpm with P waves followed by narrow complex QRS, significant motion artifact, no STEMI Interventions of: - Given 9 mL DuoNeb, 125 mg IV Solu-Medrol, 2 g magnesium for shortness of breath with improvement of symptoms. ED Course/Assessment/Plan: 70-year-old female with known advanced COPD and pulmonary mass/nodules presents with some difficulty breathing in the setting of a mild upper respiratory infection, PE is not found on CT of the chest, there is no right heart strain or elevation of troponin the patient is not in any respiratory distress here in the emergency department, she improved with symptomatic treatment I did prescribe azithromycin, cefuroxime, prednisone to treat for acute exacerbation of COPD, counseled the patient on return criteria for any respiratory distress or other emergent concerns Findings not consistent with PE, ACS, sepsis, pneumonia. Disposition of Acute Exacerbation of Chronic Bronchitis. Patient verbalized understanding of the plan and return to ED criteria and engaged in shared decision making. Medical Records Medical records reviewed: Yes I reviewed the patient's medical records. Imaging Data Radiologic Study: Attestation: I personally reviewed and interpreted this imaging study as follows: Imaging: CT Scan Radiologist's impression: EXAM: CT CHEST PE CTA CLINICAL HISTORY: elev d-dimer, SOB. TECHNIQUE: Imaging Protocol: CT angiography of the chest was performed using pulmonary embolus protocol. Multi planar reconstructions were performed. CONTRAST MATERIAL: Intravenous: Omnipaque 350 Contrast volume: 75 cc COMPARISON: CT CT CHEST LOW DOSE CA SCREENING from 05/06/2025 FINDINGS: CHEST: PULMONARY ARTERIES: There are no intraluminal filling defects to suggest acute pulmonary emboli. LUNGS: Previously described partially calcified spiculated mass-infiltrate in the left lower lobe has slightly further increased in size and now exhibits some internal cavitation. Medial to this is a smaller partially calcified nodule which appears unchanged and just below this level is in unchanged noncalcified nodule measuring 6 mm in the left lower lobe, also unchanged. In the left upper lobe the previously described mass infiltrate presently measures 2.2 cm length by 0.6 cm wide, unchanged.. No additional left lung findings nor pleural effusion. In the opposite-right lung there are no new infiltrates nor nodules. A small 4 millimeter right upper lobe nodule is unchanged. No new focal right lung findings and no pleural effusion. No new findings in trachea and mainstem bronchi. MEDIASTINUM: There is no hilar nor mediastinal adenopathy. Visualized thyroid unremarkable. CARDIAC: Heart size is upper normal. There is no pericardial effusion.Caliber of the thoracic aorta is within normal limits. No evidence of dissection. There is no significant shift of the interventricular septum. PARTIALLY VISUALIZED UPPERMOST ABDOMEN: The partially included abdominal aorta is atherosclerotic and dilated with external diameter of 2.9 cm. No adrenal masses. No ascites. No splenomegaly OSSEOUS: No significant osseous lesions.. IMPRESSION: 1. No evidence of acute pulmonary emboli. No evidence of pulmonary infarction.No pleural effusions. 2. The previously described new left upper lobe nodular lesion exhibits minimal if any significant change size when compared to outside CT scan of 05/06/2025. 3. The previously described partially calcified mass in the left lower lobe has slightly increased in size and now exhibits some cavitation on the present study. Correlation with interval previously recommended diagnostic tests is recommended. See outside report of 05/06/2025. Lab Data Lab results reviewed: Yes I reviewed the patient's lab results. Labs: Laboratory Tests Range/Units 08/29/25 16:25 WBC (4.4-10.8) 10^3/uL 5.53 RBC (3.93-5.22) 10^6/uL 3.75 L Hgb (11.2-15.7) g/dL 11.4 Hct (36.0-46.0) % 35.7 L MCV (80-95) fL 95 MCH (27.0-33.0) pg 30.4 MCHC (32.0-36.0) % 31.9 L RDW (11.7-14.6) % 12.5 Plt Count (130-400) 10^3/uL 231 MPV (8.0-11.0) fL 9.0 Immature Gran % % 0.2 Neutrophils % % 60.2 Lymphocytes % % 27.7 Monocytes % % 8.5 Eosinophils % % 2.7 Basophils % % 0.7 Nucleated RBC % (0.0-0.3) % 0.0 Absolute Neutrophils (1.2-6.7) 10^3/uL 3.33 Absolute Lymphocytes (1.2-3.4) 10^3/uL 1.53 Absolute Monocytes (0.1-0.8) 10^3/uL 0.47 Absolute Eosinophils (0.0-0.7) 10^3/uL 0.15 Absolute Basophils (0.0-0.2) 10^3/uL 0.04 D-Dimer (<500) ng/mlFEU 962 H VBG pH (7.31-7.41) 7.41 VBG pCO2 (41-51) mmHg 51 VBG pO2 mmHg 44 VBG HCO3 (23-28) mmol/L 32 H VBG Total CO2 (24-29) mmol/L 29 VBG O2 Saturation % 81 VBG Base Excess (-2-3) mmol/L 8 H Sodium (136-145) mmol/L 141 Potassium (3.5-5.1) mmol/L 4.0 Chloride (98-107) mmol/L 103 Carbon Dioxide (20.0-31.0) mmol/L 31.7 H Anion Gap (3-11) mmol/L 6.3 BUN (9-23) mg/dL 22 Creatinine (0.55-1.02) mg/dL 0.89 Est GFR (CKD-EPI 2020) (mL/min/1.73m2) 62.64 Glucose (74-106) mg/dL 107 H Calcium (8.3-10.6) mg/dL 9.0 Magnesium (1.6-2.6) mg/dL 2.0 Total Bilirubin (0.2-1.2) mg/dL 0.30 AST (<34) U/L 17 ALT (10-49) U/L 12 Alkaline Phosphatase (46-116) U/L 67 Troponin I (<35) ng/L 5 NT-Pro-B Natriuret Pep (<300) pg/mL 65 Total Protein (5.7-8.2) g/dL 6.4 Albumin (3.2-5.0) g/dL 4.0 PFSH All Active Problems (Updated 08/29/25 @ 19:05 by AMEYA Hernandez) Acute exacerbation of chronic bronchitis (Acute) ROMEL (obstructive sleep apnea) (Chronic) Lung nodule (Acute) Chronic respiratory failure with hypoxia (Acute) Nicotine dependence, cigarettes, uncomplicated (Acute) COPD (chronic obstructive pulmonary disease) (Chronic) Fibromyalgia (Acute) Encephalitis (Acute) Hypothyroidism (Chronic) Depression (Chronic) Degenerative disc disease, lumbar (Acute) Migraine (Chronic) Malaise (Acute) GERD (gastroesophageal reflux disease) (Chronic) Restless legs syndrome (Acute) Mixed hyperlipidemia (Acute) Neuropathy (Acute) Insomnia (Acute) Pulmonary nodule/lesion, solitary (Acute) Fatty liver (Acute) Smoker (Acute) Urinary incontinence (Acute) Osteopenia (Acute) Colonic polyp (Acute) Essential hypertension (Acute) COPD with acute exacerbation (Acute) Chronic pain (Chronic) Mammogram abnormal (Acute) Neck pain (Acute) Fatigue (Acute) Vitamin B 12 deficiency (Acute) Pharyngitis (Acute) Family History (Updated 10/08/22 @ 10:39 by Genevieve Christianson) Mother Heart disease Cancer Lung disease Social History (Updated 05/10/22 @ 10:00 by Genevieve Christianson) Smoking/Tobacco Use Status: Current every day Tobacco Type: cigarettes Smoking risk assessment performed?: Yes Alcohol Intake: current Alcohol type: wine Substance use type: does not use PAWSS Have you Been Recently Intoxicated or Drunk Within the Last 30 days?: No Have you Ever Experienced Previous Episodes of Alcohol Withdrawal?: No Have you ever Experienced Withdrawal Seizures?: No Have you ever Experienced Delirium Tremens(DT)s?: No Have you ever undergone Alcohol Rehabilitation Treatment (i.e, inpt ot outpatient treatment programs)?: No Have you ever Experienced Blackouts?: No Have you ever Combined Alcohol with other Downers within the last 90 days?: No Have you ever Combined Alcohol with any other Substance of Abuse during the last 90 days?: No Positive Blood Alcohol level on Presentation? [PCS.BAL]: No Evidence of Increased Autonomic Activity (i.e. HR>120, tremor, sweating, agitation, nausea)?: No Result: 0
[2025-08-29 19:19] VITALS: BP 143/74; PULSE 76; RESP 18; O2SAT 96
[2025-08-29 19:35] LABS: COVID-19 PCR Negative (Negative); RSV PCR Negative (Negative)
== END 2025-08-29 19:20 | disposition home or self-care (01) ==
PROVIDERS: Emergency Provider Physician Assistant; PCP Physician Assistant
DX: J20.9 Acute bronchitis, unspecified (principal); J42 Unspecified chronic bronchitis
CPT/HCPCS: 99284; 99285; 94640; 96375; 71275; 80053; 82805; 87637; 93005; 96365; 96366; 83735; 83880; 84484; 85025; 85379; 93010; J2919; J3475; J3490; J7620